=== PATIENT | male | born 1975 | race Caucasian/White ===

== ENCOUNTER 2018-04-21 13:47 | Emergency (ER) | payer OTHER ==
[2018-04-21] MEDS ORDERED: Ketorolac 60 MG/2 ML SDV IM ONE (15:01)
[2018-04-21] MEDS ORDERED: Acetaminophen 500 MG Tab PO ONE (15:02)
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
[2018-04-21] MEDS ORDERED: Acetaminophen/HYDROcodone 325-5 MG Tab PO ONE (16:43)
--- NOTE | 2018-04-25 09:40 | CR ---
Mild degenerative changes glenohumeral joint. No evidence for fracture.
--- NOTE | 2018-04-25 09:42 | CR ---
There is mild anterolisthesis C4-5. Irregularity at the 4-5 facet joint indicate fracture. Refer to Ocho[facility] Woodruff.
== END 2018-04-21 17:42 | disposition home or self-care (01) ==
LOC: JP.ED 13:47
DX: S12.300A Unspecified displaced fracture of fourth cervical vertebra, initial encounter for closed fracture (principal); S12.400A Unspecified displaced fracture of fifth cervical vertebra, initial encounter for closed fracture; F15.10 Other stimulant abuse, uncomplicated; V29.9XXA Motorcycle rider (driver) (passenger) injured in unspecified traffic accident, initial encounter
CPT/HCPCS: 72040; 72125; 73030; 99284; A9270; J1885

== ENCOUNTER 2022-09-16 14:23 | Emergency (ER) | payer MEDICAID ==
[2022-09-16] MEDS ORDERED: Bupivacaine 0.5%/EPINEPHrine 1:200,000 1.8 ML Cartridge INJECT ONE (16:34)
== END 2022-09-16 17:08 | disposition home or self-care (01) ==
LOC: JP.ED 14:23
DX: K04.7 Periapical abscess without sinus (principal)
CPT/HCPCS: 99282